=== PATIENT | male | born 1995 ===

== ENCOUNTER 2016-12-12 21:30 | Emergency (ER) | payer SELFPAY | END 2016-12-13 00:47 | disposition home or self-care (01) | LOC: ERS 21:30 | DX: S61.210A Laceration without foreign body of right index finger without damage to nail, initial encounter (principal); F17.210 Nicotine dependence, cigarettes, uncomplicated; W26.0XXA Contact with knife, initial encounter | CPT/HCPCS: 99283 ==

== ENCOUNTER 2018-05-15 14:04 | Emergency (ER) | payer SELFPAY | END 2018-05-15 15:00 | disposition home or self-care (01) | LOC: ERS 14:04 | DX: J01.90 Acute sinusitis, unspecified (principal); F17.290 Nicotine dependence, other tobacco product, uncomplicated | CPT/HCPCS: 99283 ==